=== PATIENT | female | born 1990 | race Caucasian/White ===

== ENCOUNTER 2021-08-25 10:38 | Emergency (ER) | payer OTHER ==
[~2021-08-25] VITALS: Ht 160 cm; Wt 63.5 kg
[2021-08-25 10:40] VITALS: BP 124/73
--- NOTE | 2021-08-25 11:16 | NUR ---
PT SEEN AND D/C BY EDMUNDO ONOFRE, NO NURSING INTERVENTIONS PROVIDED
--- NOTE | 2021-08-25 11:17 | NUR ---
PATIENT BIB [employer]. PATIENT EXAMINED BY EDMUNDO ONOFRE. PATIENT MEDICALLY CLEARED AND RELEASED IN CUSTODY IN STABLE CONDITION. ORIGINAL PRE-BOOK FORM GIVEN TO OFFICER STEVE.
== END 2021-08-25 11:17 ==
LOC: EDBD 10:38 → MED 10:38
DX: Z02.89 Encounter for other administrative examinations (principal); V89.2XXA Person injured in unspecified motor-vehicle accident, traffic, initial encounter; Y93.89 Activity, other specified; Y92.89 Other specified places as the place of occurrence of the external cause; Y99.8 Other external cause status
CPT/HCPCS: 99283